=== PATIENT | male | born 1995 | race American Indian/Alaskan Native ===

== ENCOUNTER 2024-09-06 19:25 | Emergency (ER) | payer BC, OTHER ==
[~2024-09-06] VITALS: Ht 167.6 cm; Wt 81.3 kg
[~2024-09-06 19:25] MED LIST: AMOXICILLIN500 MG PO; NORCO 5-325 TA1 EACH PO
[2024-09-06 21:27] LABS: BILIRUBIN, URINE NEGATIVE (negative); BLOOD/HGB, URINE NEGATIVE (Negative); KETONE, URINE NEGATIVE (Negative); LEUK ESTERASE, URINE NEGATIVE (negative); NITRITE, URINE NEGATIVE (negative); PH, URINE 6.5 (5-7)
[2024-09-06 21:55] VITALS: BP 114/62
[2024-09-06 22:53] LABS: N. GONORRRHOEAE BY PCR NOT DETECTED (NOT DETECT)
== END 2024-09-06 21:56 | disposition home or self-care (01) ==
LOC: ED 19:25 → EDSEX 19:27 → ED 21:56
PROVIDERS: Internal Medicine
DX: S30.812A Abrasion of penis, initial encounter (principal); Z87.891 Personal history of nicotine dependence; W26.8XXA Contact with other sharp object(s), not elsewhere classified, initial encounter
CPT/HCPCS: 81003; 99283